=== PATIENT | female | born 1985 | race African-American/Black ===

== ENCOUNTER 2016-04-30 11:27 | Emergency (ER) | payer SELFPAY ==
[~2016-04-30] VITALS: Ht 162.6 cm; Wt 89.8 kg
[2016-04-30 11:55] VITALS: BP 144/92
--- NOTE | 2016-04-30 12:21 | PHYS DOC ---
Past Medical History Past Medical History: No Pertinent History Past Surgical History: No Surgical History Adult General Chief Complaint Chief Complaint: UPPER EXTREMITY PAIN HPI HPI Patient is a 30 year old male presents emergency department stating that she woke up this morning with her right him being slightly swollen and increased pain from her hand although way up into her upper arm. Patient states that she works at the [employer] been doing some heavy lifting and moving and turning. She is right-hand dominant. She has 2+ peripheral pulses Refill brisk less than 2 seconds equal transportation operations manager noted bilaterally equal strength noted. Patient denies taking anything for pain and discomfort this morning. Review of Systems Review of Systems Constitutional: Denies fever or chills [] Eyes: Denies change in visual acuity, redness, or eye pain [] HENT: Denies nasal congestion or sore throat [] Respiratory: Denies cough or shortness of breath [] Cardiovascular: No additional information not addressed in HPI [] GI: Denies abdominal pain, nausea, vomiting, bloody stools or diarrhea [] : Denies dysuria or hematuria [] Musculoskeletal: Denies back pain. C/o right arm swelling and pain Neurologic: Denies headache, focal weakness or sensory changes [] Physical Exam Physical Exam Constitutional: Well developed, well nourished, no acute distress, non-toxic appearance. [] HENT: Normocephalic, atraumatic, bilateral external ears normal, oropharynx moist, no oral exudates, nose normal. [] Eyes: PERRLA, EOMI, conjunctiva normal, no discharge. [] Neck: Normal range of motion, no tenderness, supple, no stridor. [] Cardiovascular:Heart rate regular rhythm Lungs & Thorax: No respiratory distress noted Skin: Warm, dry, no erythema, no rash. [] Back: No tenderness Extremities: Right elbow tenderness, no cyanosis, no clubbing, ROM intact, no edema. Peripheral pulses 2+ cap refill brisk less than 2 seconds. No significant swelling was appreciated. Patient was tender at the elbow area. With palpating in the elbow she states that this causes the pain to go up into her arm she's been having. Patient with equal transportation operations manager bilaterally equal strength noted in the upper extremities. Negative Phalen's test. Neurologic: Alert and oriented X 3, normal motor function, normal sensory function, no focal deficits noted. [] Psychologic: Affect normal, judgement normal, mood normal. [] EKG EKG [] Radiology/Procedures Radiology/Procedures [] Course & Med Decision Making Course & Med Decision Making Pertinent Labs and Imaging studies reviewed. (See chart for details) Recommended ice packs on 20 minutes off 20 minutes several times a day to the elbow area. Also recommended Tylenol and ibuprofen. Patient will be placed in a sling for the next week. Recommended rest for the right arm. Patient was also instructed to follow-up with orthopedic if she continues to have pain and discomfort. Patient will be discharged home in stable condition since symptoms to return back to emergency department as been provided. [] Dragon Disclaimer Dragon Disclaimer This electronic medical record was generated, in whole or in part, using a voice recognition dictation system. Departure Departure Impression: Primary Impression: Overuse syndrome of elbow Disposition: 01 HOME, SELF-CARE Condition: STABLE Referrals: VINAY FREEDMAN MD (PCP) Patient Instructions: Bursitis Additional Instructions: Activity as tolerated Tylenol or Ibuprofen for pain and discomfort Ice packs on 20 minutes and off 20 minutes several times a day Elevation as much as possible Wear the sling to the right arm the next week Avoid lifting and over use of the right arm Followup with orthopedic in 1 week Return to emergency department as needed for signs and symptoms that become worse. NELY MORA NP Apr 30, 2016 12:21
== END 2016-04-30 12:30 | disposition home or self-care (01) ==
LOC: ER 11:27
DX: M70.831 Other soft tissue disorders related to use, overuse and pressure, right forearm (principal)
CPT/HCPCS: 99282

== ENCOUNTER 2017-06-18 00:09 | Inpatient (IN) | payer OTHER ==
[2017-06-18] MEDS: SUCCINYLCHOLINE 200 MG/10 ML VIAL. IV (00:31)
[2017-06-18] MEDS: ETOMIDATE 20 MG/10 ML VIAL. IV (00:31)
[2017-06-18] MEDS ORDERED: PROPOFOL 50 ML IV ×2 (00:36→02:08)
[2017-06-18] MEDS: PROPOFOL 50 ML IV (00:42)
[2017-06-18] MEDS: PROPOFOL 10 MG/ML (20ML) VIAL. IV (00:45)
[2017-06-18 00:55] LABS: AGAP ISTAT 20 mmol/L (6-14); BUN ISTAT 20 mg/dL (8-26); CHLORIDE ISTAT 106 mmol/L (98-110); CREATININE ISTAT 0.9 mg/dL (0.5-1.4); GLUCOSE ISTAT 252 mg/dL (70-99); HEMATOCRIT ISTAT 44 % (36-40); ION CA ISTAT 1.03 mmol/L (1.13-1.32); POTASSIUM ISTAT 3.2 mmol/L (3.5-5.0); SODIUM ISTAT 142 mmol/L (135-145); TOT CO2 ISTAT 19 mmol/L (23-32)
[2017-06-18 00:59] LABS: ANION GAP 14 (6-14); BLOOD UREA NITROGEN 20 mg/dL (7-20); BUN/CREATININE RATIO 20 (6-20); CALCIUM 8.4 mg/dL (8.5-10.1); CARBON DIOXIDE 21 mmol/L (21-32); CHLORIDE 105 mmol/L (98-107); GFR 78.2; GLUCOSE 253 mg/dL (70-99); POTASSIUM 3.9 mmol/L (3.5-5.1); SODIUM 140 mmol/L (136-145)
[2017-06-18 01:04] LABS: ACETAMIN < 2 mcg/ml (10-30); ETHANOL < 10 mg/dL (0-10); SALIC < 2.8 mg/dL (2.8-20.0)
[2017-06-18 01:05] LABS: ALBUMIN 3.1 g/dL (3.4-5.0); ALBUMIN/GLOBULIN RATIO 0.9 (1.0-1.7); ALK PHOS 38 U/L (46-116); ALT (SGPT) 65 U/L (14-59); AST (SGOT) 64 U/L (15-37); TOTAL BILIRUBIN 0.4 mg/dL (0.2-1.0); TOTAL PROTEIN 6.6 g/dL (6.4-8.2)
[2017-06-18] MEDS: AMIODARONE 150 MG in IV DEXTROSE 5% 100 ML IV (01:31)
[2017-06-18] MEDS ORDERED: ONDANSETRON PF 4 MG/2 ML VIAL. IV (01:45)
[2017-06-18] MEDS: AMIODARONE 900 MG in IV DEXTROSE 5% 500 ML IV ×2 (01:45→23:52)
[2017-06-18 02:06] LABS: URINE HCG POC HCG NEGATIVE (Negative)
[2017-06-18 02:07] LABS: BILIRUBIN,URINE NEGATIVE (NEG); CLARITY,URINE CLOUDY; COLOR,URINE YELLOW; GLUCOSE,URINE 250 mg/dL (NEG); NITRITE,URINE NEGATIVE (NEG); PH,URINE 6.5; PROTEIN,URINE >=300 mg/dL (NEG-TRACE); UROBILINOGEN,URINE 0.2 mg/dL (0.2 mg/dL)
[2017-06-18 02:22] LABS: BACTERIA,URINE MOD /HPF (0-FEW); SQUAMOUS EPITHELIAL CELL,UR FEW /LPF
[2017-06-18 02:27] LABS: BARBITURATES NEG (NEG); BENZODIAZEPINES NEG (NEG); CANNABINOIDS NEG (NEG); COCAINE NEG (NEG); METHADONE NEG (NEG); OPIATES NEG (NEG); PHENCYCLIDINE NEG (NEG)
[2017-06-18 02:28] LABS: AMPHETAMINE/METHAMPHETAMINE NEG (NEG); ETHANOL, URINE NEG (NEG)
[2017-06-18] MEDS ORDERED: CONTRAST GIVEN MC ×2 (02:30→12:30)
[2017-06-18] MEDS ORDERED: ETOMIDATE 20 MG/10 ML VIAL. IV (02:31)
[2017-06-18] MEDS ORDERED: SUCCINYLCHOLINE 200 MG/10 ML VIAL. (02:32)
[2017-06-18 02:51] LABS: BASE EXCESS ABG -5 mmol/L (-3-3); HCO3 ABG 20 mmol/L (21-28); PCO2 ABG 39 mmHg (35-46); PH ABG 7.33 (7.35-7.45); PO2 ABG 144 mmHg (85-108); SAT O2 ABG 99 % (92-99)
[2017-06-18 02:58] LABS: FIO2 ABG 100
[2017-06-18] MEDS: IOHEXOL 300 MG/ML 100ML VIAL. IV (03:22)
[2017-06-18] MEDS: PROPOFOL 100 ML IV ×2 (04:00→09:44)
[2017-06-18] MEDS: NOREPINEPHRIN PREMIX 250 ML IV (04:30)
[2017-06-18 05:18] LABS: ADD MAN DIFF? NO
[2017-06-18 05:26] LABS: BASO % 0 % (0-3); EOS % 0 % (0-3); HEMATOCRIT 43.7 % (36.0-47.0); LYMPH # 1.5 x10^3/uL (1.0-4.8); LYMPH % 19 % (24-48); MEAN CORPUSCULAR HEMOGLOBIN 33 pg (25-35); MEAN CORPUSCULAR HGB CONC 32 g/dL (31-37); MEAN CORPUSCULAR VOLUME 102 fL (79-100); MONO # 0.4 x10^3/uL (0.0-1.1); MONO % 5 % (0-9); NEUT % 76 % (31-73); PLATELET COUNT 219 x10^3/uL (140-400); RED CELL DISTRIBUTION WIDTH 13.5 % (11.5-14.5); WHITE BLOOD COUNT 7.9 x10^3/uL (4.0-11.0)
[2017-06-18 06:07] LABS: TROPONINI 0.622 ng/mL (0.000-0.055)
[2017-06-18] MEDS ORDERED: NOREPINEPHRIN PREMIX 250 ML IV (06:15)
[2017-06-18 08:03] LABS: TROPONINI 0.794 ng/mL (0.000-0.055)
[2017-06-18 08:11] LABS: BASE EXCESS ABG -7 mmol/L (-3-3); HCO3 ABG 18 mmol/L (21-28); PCO2 ABG 35 mmHg (35-46); PH ABG 7.34 (7.35-7.45); PO2 ABG 64 mmHg (85-108); SAT O2 ABG 91 % (92-99)
[2017-06-18 08:58] LABS: FIO2 ABG 90
[2017-06-18] MEDS ORDERED: DOCUSATE SODIUM 100 MG CAPSULE. PO (09:00)
[2017-06-18] MEDS ORDERED: MORPHINE SULFATE 4 MG/ML DISP.SYRIN. IV ×3 (09:00→11:00)
[2017-06-18] MEDS ORDERED: hydrALAZINE 20 MG/ML VIAL. IVP (09:00)
[2017-06-18 09:39] LABS: HEMOGLOBIN 15.3 g/dL (12.0-15.5); MEAN CORPUSCULAR HEMOGLOBIN 33 pg (25-35); MEAN CORPUSCULAR HGB CONC 33 g/dL (31-37); MEAN CORPUSCULAR VOLUME 100 fL (79-100); PLATELET COUNT 250 x10^3/uL (140-400); RED BLOOD COUNT 4.71 x10^6/uL (3.50-5.40); RED CELL DISTRIBUTION WIDTH 13.2 % (11.5-14.5); WHITE BLOOD COUNT 13.1 x10^3/uL (4.0-11.0)
[2017-06-18] MEDS ORDERED: LIDOCAINE 2% 20 ML VIAL. ×2 (09:48→11:19)
[2017-06-18] MEDS ORDERED: IOHEXOL 300 MG/ML 100ML VIAL. ×2 (09:48→11:18)
[2017-06-18 09:50] LABS: ANION GAP 16 (6-14); BLOOD UREA NITROGEN 24 mg/dL (7-20); CALCIUM 9.1 mg/dL (8.5-10.1); CARBON DIOXIDE 23 mmol/L (21-32); CHLORIDE 104 mmol/L (98-107); CREATININE 1.7 mg/dL (0.6-1.0); GFR 42.4; GLUCOSE 113 mg/dL (70-99); POTASSIUM 4.2 mmol/L (3.5-5.1); SODIUM 143 mmol/L (136-145)
[2017-06-18 09:51] LABS: CHOLESTEROL 152 mg/dL (0-200); HDLC 52 mg/dL (40-60); LDLC 87 mg/dL (0-100); LIPASE 59 U/L (73-393); NON-HDL CHOLESTEROL 100 mg/dL (0-129); TRIGLYCERIDES 66 mg/dL (0-150); VLDLC 13 mg/dL (0-40)
[2017-06-18 09:53] LABS: CHOLESTEROL/HDL RATIO 2.9
[2017-06-18 10:05] LABS: THYROID STIM HORMONE (TSH) 1.302 uIU/mL (0.358-3.74)
[2017-06-18] MEDS ORDERED: HEPARIN for IV BOLUS 10,000 UNIT/10 ML VIAL. ×2 (10:05→11:46)
[2017-06-18 10:06] LABS: CKMB INDEX 1.5 % (0-4); CKMB MASS 5.4 ng/mL (0.0-3.6); CREATINE KINASE 366 U/L (26-192)
[2017-06-18] MEDS ORDERED: LIDOCAINE WITH 8.4% SOD BICARB 3 ML DISP.SYRIN. (10:06)
[2017-06-18] MEDS: LIDOCAINE WITH 8.4% SOD BICARB 3 ML DISP.SYRIN. INJ (10:27)
[2017-06-18] MEDS ORDERED: PIP/TAZO PER PHARMACY MC (10:45)
[2017-06-18 10:54] LABS: MYCOPLASMA PATIENT POSITIVE (NEGATIVE); NEGATIVE OBC MYCO NEG; POSITIVE OBC MYCO POS
[2017-06-18] MEDS: DOXYCYCLINE HYCLATE 100 MG in IV DEXTROSE 5% 100 ML IV ×2 (11:14→20:37)
[2017-06-18] MEDS: SODIUM BICARBONATE VIAL 150 MEQ in IV DEXTROSE 5% 1,000 ML IV ×2 (11:14→22:20)
[2017-06-18] MEDS: MIDAZOLAM 100MG/100ML PREMIX 100 ML IV ×2 (11:29→23:52)
[2017-06-18] MEDS ORDERED: VERAPAMIL 5 MG/2 ML VIAL. ×2 (11:46→12:00)
[2017-06-18] MEDS ORDERED: NITROGLYCERIN 200 MCG/2 ML SYRINGE FOR CATH/VASC LAB. (11:46)
[2017-06-18] MEDS: LIDOCAINE 2% 20 ML VIAL. IJ (12:24)
[2017-06-18] MEDS: IOHEXOL 300 MG/ML 100ML VIAL. IART (12:24)
[2017-06-18] MEDS ORDERED: NITROGLYCERIN SUBLINGUAL 0.4 MG BOTTLE OF 25. SL (12:45)
[2017-06-18 15:33] LABS: ANION GAP 10 (6-14); BLOOD UREA NITROGEN 24 mg/dL (7-20); CALCIUM 8.1 mg/dL (8.5-10.1); CARBON DIOXIDE 24 mmol/L (21-32); CHLORIDE 105 mmol/L (98-107); CREATININE 1.8 mg/dL (0.6-1.0); GFR 39.7; GLUCOSE 141 mg/dL (70-99); POTASSIUM 3.6 mmol/L (3.5-5.1); SODIUM 139 mmol/L (136-145)
[2017-06-18] MEDS: PIPERACILLIN/TAZOBACTAM 3.375 GM in IV NORMAL SALINE 50ML 50 ML IV ×3 (15:51→23:52)
[2017-06-18] MEDS: HEPARIN PF for SUB-Q USE 5,000 UNIT/0.5 ML VIAL. SQ ×2 (17:14→22:21)
[2017-06-18] MEDS: CHLORHEXIDINE 0.12% 15 ML MOUTHWASH. MM (20:36)
[2017-06-18] MEDS: FAMOTIDINE 20 MG/2 ML VIAL IVP (20:36)
[2017-06-18 22:16] LABS: MRSA BY PCR Negative (Negative)
[2017-06-19 05:22] LABS: ADD MAN DIFF? NO
[2017-06-19 05:25] LABS: BASO % 1 % (0-3); EOS % 0 % (0-3); HEMATOCRIT 34.8 % (36.0-47.0); LYMPH % 13 % (24-48); MEAN CORPUSCULAR HEMOGLOBIN 34 pg (25-35); MEAN CORPUSCULAR HGB CONC 35 g/dL (31-37); MEAN CORPUSCULAR VOLUME 97 fL (79-100); MONO # 0.5 x10^3/uL (0.0-1.1); MONO % 7 % (0-9); NEUT # 5.7 x10^3uL (1.8-7.7); NEUT % 79 % (31-73); PLATELET COUNT 154 x10^3/uL (140-400); RED BLOOD COUNT 3.59 x10^6/uL (3.50-5.40); RED CELL DISTRIBUTION WIDTH 12.7 % (11.5-14.5); WHITE BLOOD COUNT 7.2 x10^3/uL (4.0-11.0)
[2017-06-19] MEDS: PIPERACILLIN/TAZOBACTAM 3.375 GM in IV NORMAL SALINE 50ML 50 ML IV ×4 (05:34→23:51)
[2017-06-19] MEDS: HEPARIN PF for SUB-Q USE 5,000 UNIT/0.5 ML VIAL. SQ ×3 (05:35→21:02)
[2017-06-19 05:49] LABS: ALBUMIN 2.5 g/dL (3.4-5.0); ALBUMIN/GLOBULIN RATIO 0.8 (1.0-1.7); ALK PHOS 22 U/L (46-116); ALT (SGPT) 47 U/L (14-59); ANION GAP 8 (6-14); AST (SGOT) 37 U/L (15-37); BLOOD UREA NITROGEN 19 mg/dL (7-20); BUN/CREATININE RATIO 12 (6-20); CALCIUM 7.9 mg/dL (8.5-10.1); CARBON DIOXIDE 27 mmol/L (21-32); CHLORIDE 105 mmol/L (98-107); CREATININE 1.6 mg/dL (0.6-1.0); GFR 45.5; GLUCOSE 127 mg/dL (70-99); SODIUM 140 mmol/L (136-145); TOTAL BILIRUBIN 1.1 mg/dL (0.2-1.0); TOTAL PROTEIN 5.8 g/dL (6.4-8.2)
[2017-06-19 06:04] LABS: POTASSIUM 2.7 mmol/L (3.5-5.1)
[2017-06-19] MEDS: POTASSIUM CHLORIDE 20MEQ 50 ML IV ×2 (07:45→09:31)
[2017-06-19 07:52] LABS: BASE EXCESS ABG 4 mmol/L (-3-3); HCO3 ABG 24 mmol/L (21-28); PCO2 ABG 23 mmHg (35-46); PO2 ABG 487 mmHg (85-108); SAT O2 ABG 99 % (92-99)
[2017-06-19 08:13] LABS: MAGNESIUM 1.7 mg/dL (1.8-2.4)
[2017-06-19] MEDS: MAGNESIUM SULFATE 2GM 50 ML IV ×2 (09:30→11:21)
[2017-06-19] MEDS: SODIUM BICARBONATE VIAL 150 MEQ in IV DEXTROSE 5% 1,000 ML IV ×2 (10:40→20:58)
[2017-06-19 11:27] LABS: LEGIONELLA AG UR Negative (Negative)
[2017-06-19 11:27] LABS: SPECIMEN SOURCE Urine (.); STREP PNEUMO ANTIGEN Negative (Negative)
[2017-06-19] MEDS: DOXYCYCLINE HYCLATE 100 MG in IV DEXTROSE 5% 100 ML IV ×2 (12:39→20:45)
[2017-06-19] MEDS: CHLORHEXIDINE 0.12% 15 ML MOUTHWASH. MM ×2 (14:11→20:45)
[2017-06-19 16:47] LABS: FIO2 ABG 90; PH ABG 7.62 (7.35-7.45)
[2017-06-19] MEDS ORDERED: PANTOPRAZOLE SODIUM IV DRIP 80 MG in IV NORMAL SALINE 100ML 100 ML IV (17:30)
[2017-06-19 17:58] LABS: HEMATOCRIT 33.4 % (36.0-47.0); HEMOGLOBIN 11.5 g/dL (12.0-15.5); MEAN CORPUSCULAR HGB CONC 34 g/dL (31-37)
[2017-06-19] MEDS: MIDAZOLAM 100MG/100ML PREMIX 100 ML IV (18:27)
[2017-06-19] MEDS: PANTOPRAZOLE IV PUSH 40 MG VIAL. IVP (20:45)
[2017-06-20 01:14] LABS: HEMOGLOBIN A1C 5.4 % (4.8-5.6)
[2017-06-20 05:43] LABS: POC GLUCOSE 112 mg/dL (70-99)
[2017-06-20 06:02] LABS: ADD MAN DIFF? NO
[2017-06-20] MEDS: PIPERACILLIN/TAZOBACTAM 3.375 GM in IV NORMAL SALINE 50ML 50 ML IV ×3 (06:22→17:49)
[2017-06-20 06:24] LABS: BASO % 0 % (0-3); EOS # 0.1 x10^3/uL (0.0-0.7); EOS % 1 % (0-3); HEMATOCRIT 31.5 % (36.0-47.0); HEMOGLOBIN 10.8 g/dL (12.0-15.5); LYMPH # 0.8 x10^3/uL (1.0-4.8); LYMPH % 17 % (24-48); MEAN CORPUSCULAR HEMOGLOBIN 34 pg (25-35); MEAN CORPUSCULAR HGB CONC 34 g/dL (31-37); MEAN CORPUSCULAR VOLUME 98 fL (79-100); MONO # 0.5 x10^3/uL (0.0-1.1); MONO % 9 % (0-9); NEUT # 3.6 x10^3uL (1.8-7.7); NEUT % 73 % (31-73); PLATELET COUNT 137 x10^3/uL (140-400); RED BLOOD COUNT 3.23 x10^6/uL (3.50-5.40); RED CELL DISTRIBUTION WIDTH 12.9 % (11.5-14.5)
[2017-06-20] MEDS: HEPARIN PF for SUB-Q USE 5,000 UNIT/0.5 ML VIAL. SQ ×3 (06:24→22:29)
[2017-06-20 06:34] LABS: ANION GAP 7 (6-14); BLOOD UREA NITROGEN 10 mg/dL (7-20); CALCIUM 7.7 mg/dL (8.5-10.1); CARBON DIOXIDE 27 mmol/L (21-32); CHLORIDE 105 mmol/L (98-107); CREATININE 1.1 mg/dL (0.6-1.0); GFR 70.1; GLUCOSE 125 mg/dL (70-99); PHOSPHORUS 2.8 mg/dL (2.6-4.7); SODIUM 139 mmol/L (136-145)
[2017-06-20 06:36] LABS: POTASSIUM 2.9 mmol/L (3.5-5.1)
[2017-06-20 07:37] LABS: BASE EXCESS ABG 2 mmol/L (-3-3); HCO3 ABG 23 mmol/L (21-28); PO2 ABG 146 mmHg (85-108); SAT O2 ABG 99 % (92-99)
[2017-06-20] MEDS: POTASSIUM CHLORIDE 20MEQ 50 ML IV ×4 (07:37→22:06)
[2017-06-20 08:46] LABS: PCO2 ABG 26 mmHg (35-46); PH ABG 7.56 (7.35-7.45)
[2017-06-20] MEDS: MIDAZOLAM 100MG/100ML PREMIX 100 ML IV (08:49)
[2017-06-20] MEDS: SODIUM BICARBONATE VIAL 150 MEQ in IV DEXTROSE 5% 1,000 ML IV ×2 (09:23→20:48)
[2017-06-20] MEDS: PANTOPRAZOLE IV PUSH 40 MG VIAL. IVP ×2 (09:28→20:48)
[2017-06-20] MEDS: DOXYCYCLINE HYCLATE 100 MG in IV DEXTROSE 5% 100 ML IV ×2 (09:49→20:48)
[2017-06-20] MEDS: CHLORHEXIDINE 0.12% 15 ML MOUTHWASH. MM ×2 (11:49→20:04)
[2017-06-20] MEDS: METOPROLOL TARTRATE 5 MG/5 ML VIAL. IVP (12:00)
[2017-06-20 12:44] LABS: POC GLUCOSE 109 mg/dL (70-99)
[2017-06-20 15:25] LABS: BASE EXCESS ABG 1 mmol/L (-3-3); HCO3 ABG 25 mmol/L (21-28); PCO2 ABG 38 mmHg (35-46); PH ABG 7.44 (7.35-7.45); PO2 ABG 64 mmHg (85-108); SAT O2 ABG 92 % (92-99)
[2017-06-20 15:26] LABS: FIO2 ABG 30%
[2017-06-20 17:58] LABS: POC GLUCOSE 123 mg/dL (70-99)
[2017-06-20 20:16] LABS: POTASSIUM 3.4 mmol/L (3.5-5.1)
[2017-06-20 21:11] LABS: RVP ADENOVIRUS Negative (Negative); RVP INFLUENZA A Negative (Negative); RVP INFLUENZA B Negative (Negative); RVP METAPNEUMOVIRUS Negative (Negative); RVP PARAINFLUENZA 1 Negative (Negative); RVP PARAINFLUENZA 2 Negative (Negative); RVP PARAINFLUENZA 3 Negative (Negative); RVP RHINOVIRUS Negative (Negative); RVP RSV A Negative (Negative); RVP RSV B Negative (Negative)
[2017-06-21] MEDS: METOPROLOL TARTRATE 5 MG/5 ML VIAL. IVP ×7 (00:01→23:53)
[2017-06-21] MEDS: PIPERACILLIN/TAZOBACTAM 3.375 GM in IV NORMAL SALINE 50ML 50 ML IV ×5 (00:06→23:53)
[2017-06-21] MEDS: AMIODARONE 450 MG in IV DEXTROSE 5% 250 ML IV (02:36)
[2017-06-21] MEDS: HEPARIN PF for SUB-Q USE 5,000 UNIT/0.5 ML VIAL. SQ ×3 (05:33→21:09)
[2017-06-21 06:21] LABS: ADD MAN DIFF? NO
[2017-06-21 06:34] LABS: BASO % 0 % (0-3); EOS # 0.1 x10^3/uL (0.0-0.7); EOS % 3 % (0-3); HEMATOCRIT 32.2 % (36.0-47.0); HEMOGLOBIN 10.7 g/dL (12.0-15.5); LYMPH # 0.8 x10^3/uL (1.0-4.8); LYMPH % 17 % (24-48); MEAN CORPUSCULAR HEMOGLOBIN 33 pg (25-35); MEAN CORPUSCULAR HGB CONC 33 g/dL (31-37); MEAN CORPUSCULAR VOLUME 98 fL (79-100); MONO # 0.4 x10^3/uL (0.0-1.1); MONO % 9 % (0-9); NEUT # 3.4 x10^3uL (1.8-7.7); NEUT % 71 % (31-73); PLATELET COUNT 123 x10^3/uL (140-400); RED BLOOD COUNT 3.28 x10^6/uL (3.50-5.40); RED CELL DISTRIBUTION WIDTH 12.9 % (11.5-14.5); WHITE BLOOD COUNT 4.7 x10^3/uL (4.0-11.0)
[2017-06-21 06:50] LABS: ANION GAP 6 (6-14); BLOOD UREA NITROGEN 7 mg/dL (7-20); CALCIUM 8.4 mg/dL (8.5-10.1); CARBON DIOXIDE 26 mmol/L (21-32); CHLORIDE 105 mmol/L (98-107); CREATININE 0.9 mg/dL (0.6-1.0); GFR 88.4; GLUCOSE 138 mg/dL (70-99); MAGNESIUM 1.8 mg/dL (1.8-2.4); PHOSPHORUS 2.7 mg/dL (2.6-4.7); POTASSIUM 3.5 mmol/L (3.5-5.1); SODIUM 137 mmol/L (136-145)
[2017-06-21 08:06] LABS: BASE EXCESS ABG 1 mmol/L (-3-3); HCO3 ABG 24 mmol/L (21-28); PCO2 ABG 33 mmHg (35-46); PH ABG 7.48 (7.35-7.45); PO2 ABG 89 mmHg (85-108); SAT O2 ABG 97 % (92-99)
[2017-06-21 08:07] LABS: FIO2 ABG 30
[2017-06-21] MEDS: POTASSIUM CHLORIDE 20 MEQ TABLET.ER. PO (08:31)
[2017-06-21] MEDS: PANTOPRAZOLE IV PUSH 40 MG VIAL. IVP ×2 (08:32→21:03)
[2017-06-21] MEDS: DOXYCYCLINE HYCLATE 100 MG in IV DEXTROSE 5% 100 ML IV ×2 (08:33→21:03)
[2017-06-21] MEDS: CHLORHEXIDINE 0.12% 15 ML MOUTHWASH. MM (08:33)
[2017-06-21] MEDS: valACYclovir 500 MG TABLET. PO ×3 (08:37→21:03)
[2017-06-21 08:54] LABS: BASE EXCESS ABG 1 mmol/L (-3-3); HCO3 ABG 24 mmol/L (21-28); PCO2 ABG 35 mmHg (35-46); PH ABG 7.45 (7.35-7.45); PO2 ABG 99 mmHg (85-108); SAT O2 ABG 98 % (92-99)
[2017-06-21] MEDS: ONDANSETRON PF 4 MG/2 ML VIAL. IV (09:29)
[2017-06-21] MEDS: SODIUM BICARBONATE VIAL 150 MEQ in IV DEXTROSE 5% 1,000 ML IV ×2 (09:31→20:36)
[2017-06-21 14:49] LABS: FIO2 ABG 30
[2017-06-21] MEDS: traMADol 50 MG TABLET PO (17:47)
[2017-06-22] MEDS: HEPARIN PF for SUB-Q USE 5,000 UNIT/0.5 ML VIAL. SQ ×3 (06:00→20:50)
[2017-06-22] MEDS: PIPERACILLIN/TAZOBACTAM 3.375 GM in IV NORMAL SALINE 50ML 50 ML IV ×4 (06:12→23:26)
[2017-06-22] MEDS: METOPROLOL TARTRATE 5 MG/5 ML VIAL. IVP (06:12)
[2017-06-22 06:29] LABS: ADD MAN DIFF? NO
[2017-06-22 06:42] LABS: BASO % 0 % (0-3); EOS # 0.2 x10^3/uL (0.0-0.7); EOS % 5 % (0-3); HEMATOCRIT 31.1 % (36.0-47.0); HEMOGLOBIN 10.5 g/dL (12.0-15.5); LYMPH # 1.1 x10^3/uL (1.0-4.8); LYMPH % 22 % (24-48); MEAN CORPUSCULAR HEMOGLOBIN 33 pg (25-35); MEAN CORPUSCULAR HGB CONC 34 g/dL (31-37); MEAN CORPUSCULAR VOLUME 98 fL (79-100); MONO # 0.5 x10^3/uL (0.0-1.1); MONO % 10 % (0-9); NEUT # 3.2 x10^3uL (1.8-7.7); NEUT % 63 % (31-73); PLATELET COUNT 120 x10^3/uL (140-400); RED BLOOD COUNT 3.18 x10^6/uL (3.50-5.40); RED CELL DISTRIBUTION WIDTH 12.7 % (11.5-14.5); WHITE BLOOD COUNT 5.1 x10^3/uL (4.0-11.0)
[2017-06-22 06:51] LABS: ANION GAP 4 (6-14); BLOOD UREA NITROGEN 6 mg/dL (7-20); CALCIUM 8.5 mg/dL (8.5-10.1); CARBON DIOXIDE 30 mmol/L (21-32); CHLORIDE 104 mmol/L (98-107); CREATININE 0.9 mg/dL (0.6-1.0); GFR 88.4; GLUCOSE 120 mg/dL (70-99); POTASSIUM 3.4 mmol/L (3.5-5.1); SODIUM 138 mmol/L (136-145)
[2017-06-22] MEDS: SODIUM BICARBONATE VIAL 150 MEQ in IV DEXTROSE 5% 1,000 ML IV (08:24)
[2017-06-22] MEDS: POTASSIUM CHLORIDE 20 MEQ TABLET.ER. PO ×2 (08:25→13:19)
[2017-06-22] MEDS: PANTOPRAZOLE IV PUSH 40 MG VIAL. IVP (08:26)
[2017-06-22] MEDS: DOXYCYCLINE HYCLATE 100 MG in IV DEXTROSE 5% 100 ML IV ×2 (08:26→20:39)
[2017-06-22] MEDS: valACYclovir 500 MG TABLET. PO ×3 (08:27→20:42)
[2017-06-22] MEDS ORDERED: ALPRAZolam 0.25 MG TABLET PO (08:30)
[2017-06-22] MEDS ORDERED: AMIODARONE HCL 200 MG TABLET. PO (11:00)
[2017-06-22] MEDS: ACETAMINOPHEN 325 MG TABLET. PO (12:10)
[2017-06-22] MEDS: METOPROLOL TART IMMED RELEASE 25 MG TABLET. PO ×2 (12:12→20:41)
[2017-06-22] MEDS: AMIODARONE HCL 200 MG TABLET. PO (20:41)
[2017-06-23] MEDS: PIPERACILLIN/TAZOBACTAM 3.375 GM in IV NORMAL SALINE 50ML 50 ML IV ×4 (05:04→23:31)
[2017-06-23 05:06] LABS: ADD MAN DIFF? NO
[2017-06-23 05:35] LABS: ANION GAP 10 (6-14); BLOOD UREA NITROGEN 5 mg/dL (7-20); CALCIUM 8.4 mg/dL (8.5-10.1); CARBON DIOXIDE 25 mmol/L (21-32); CHLORIDE 106 mmol/L (98-107); CREATININE 0.9 mg/dL (0.6-1.0); GFR 88.4; GLUCOSE 94 mg/dL (70-99); POTASSIUM 3.9 mmol/L (3.5-5.1); SODIUM 141 mmol/L (136-145)
[2017-06-23 05:46] LABS: BASO % 1 % (0-3); EOS # 0.2 x10^3/uL (0.0-0.7); EOS % 5 % (0-3); HEMATOCRIT 32.1 % (36.0-47.0); HEMOGLOBIN 10.8 g/dL (12.0-15.5); LYMPH # 1.2 x10^3/uL (1.0-4.8); LYMPH % 24 % (24-48); MEAN CORPUSCULAR HEMOGLOBIN 33 pg (25-35); MEAN CORPUSCULAR HGB CONC 34 g/dL (31-37); MEAN CORPUSCULAR VOLUME 98 fL (79-100); MONO # 0.5 x10^3/uL (0.0-1.1); MONO % 11 % (0-9); NEUT % 61 % (31-73); PLATELET COUNT 141 x10^3/uL (140-400); RED BLOOD COUNT 3.28 x10^6/uL (3.50-5.40); RED CELL DISTRIBUTION WIDTH 12.9 % (11.5-14.5); WHITE BLOOD COUNT 4.9 x10^3/uL (4.0-11.0)
[2017-06-23] MEDS: PANTOPRAZOLE 40 MG TABLET.DR. PO (06:19)
[2017-06-23] MEDS: HEPARIN PF for SUB-Q USE 5,000 UNIT/0.5 ML VIAL. SQ ×3 (06:20→20:28)
[2017-06-23] MEDS: ACETAMINOPHEN 325 MG TABLET. PO (06:29)
[2017-06-23] MEDS: POTASSIUM CHLORIDE 20 MEQ TABLET.ER. PO (08:44)
[2017-06-23] MEDS: METOPROLOL TART IMMED RELEASE 25 MG TABLET. PO ×2 (08:44→20:21)
[2017-06-23] MEDS: AMIODARONE HCL 200 MG TABLET. PO ×2 (08:45→20:20)
[2017-06-23] MEDS: DOXYCYCLINE HYCLATE 100 MG in IV DEXTROSE 5% 100 ML IV ×2 (08:45→20:16)
[2017-06-23] MEDS: valACYclovir 500 MG TABLET. PO ×3 (09:43→20:21)
[2017-06-24] MEDS: HEPARIN PF for SUB-Q USE 5,000 UNIT/0.5 ML VIAL. SQ ×3 (03:39→21:49)
[2017-06-24] MEDS: PANTOPRAZOLE 40 MG TABLET.DR. PO ×2 (03:40→08:44)
[2017-06-24] MEDS: PIPERACILLIN/TAZOBACTAM 3.375 GM in IV NORMAL SALINE 50ML 50 ML IV ×3 (04:55→18:38)
[2017-06-24] MEDS: IV RINGERS,LACTATED 1000ML 1,000 ML IV (07:00)
[2017-06-24] MEDS ORDERED: PROCHLORPERAZINE 10 MG/2 ML VIAL. IV (07:00)
[2017-06-24] MEDS ORDERED: LIDOCAINE 1% PF 2 ML VIAL. ID (07:00)
[2017-06-24] MEDS ORDERED: HYDROmorphone 2 MG/ML VIAL IV (07:00)
[2017-06-24] MEDS ORDERED: fentaNYL PF VIAL 100 MCG/2 ML VIAL IV (07:00)
[2017-06-24] MEDS: POTASSIUM CHLORIDE 20 MEQ TABLET.ER. PO (08:00)
[2017-06-24] MEDS ORDERED: LOPERAMIDE 2 MG CAPSULE PO (08:15)
[2017-06-24] MEDS: METOPROLOL TART IMMED RELEASE 25 MG TABLET. PO ×2 (08:42→21:48)
[2017-06-24] MEDS: AMIODARONE HCL 200 MG TABLET. PO ×2 (08:43→21:57)
[2017-06-24] MEDS ORDERED: LIDOCAINE 2%/EPI 1:100,000 20 ML VIAL. (11:03)
[2017-06-24] MEDS ORDERED: fentaNYL PF VIAL 100 MCG/2 ML VIAL ×2 (11:13→13:24)
[2017-06-24] MEDS ORDERED: MIDAZOLAM HCL/PF 2 MG/2 ML VIAL. ×2 (11:13→11:45)
[2017-06-24] MEDS: fentaNYL PF VIAL 100 MCG/2 ML VIAL IV ×3 (11:30→13:42)
[2017-06-24] MEDS ORDERED: PROPOFOL 40 ML IV (11:45)
[2017-06-24] MEDS ORDERED: KETAMINE HCL 500 MG/10 ML VIAL. (11:45)
[2017-06-24] MEDS: BACITRACIN 50,000 UNIT in IV NORMAL SALINE 250ML 250 ML IRR (12:53)
[2017-06-24] MEDS: LIDOCAINE 2%/EPI 1:100,000 20 ML VIAL. IJ (12:53)
[2017-06-24] MEDS: MIDAZOLAM HCL/PF 2 MG/2 ML VIAL. IV (12:56)
[2017-06-24] MEDS ORDERED: MORPHINE SULFATE 4 MG/ML DISP.SYRIN. (13:15)
[2017-06-24] MEDS: MORPHINE SULFATE 4 MG/ML DISP.SYRIN. IV ×2 (13:29→13:41)
[2017-06-24] MEDS ORDERED: PROPOFOL 10 MG/ML (20ML) VIAL. IV (16:00)
[2017-06-24] MEDS: traMADol 50 MG TABLET PO ×2 (16:15→23:27)
[2017-06-24 20:11] LABS: C DIFF BY PCR Negative (Negative)
[2017-06-24] MEDS: LACTOBACILLUS RHAMNOSUS GG 1 CAPSULE. PO (21:47)
[2017-06-24] MEDS: ACETAMINOPHEN 325 MG TABLET. PO (23:27)
[2017-06-25] MEDS: PIPERACILLIN/TAZOBACTAM 3.375 GM in IV NORMAL SALINE 50ML 50 ML IV ×2 (00:11→05:49)
[2017-06-25] MEDS: HEPARIN PF for SUB-Q USE 5,000 UNIT/0.5 ML VIAL. SQ ×3 (05:50→14:22)
[2017-06-25] MEDS: AMIODARONE HCL 200 MG TABLET. PO (09:18)
[2017-06-25] MEDS: POTASSIUM CHLORIDE 20 MEQ TABLET.ER. PO (09:19)
[2017-06-25] MEDS: METOPROLOL TART IMMED RELEASE 25 MG TABLET. PO (09:19)
[2017-06-25] MEDS: LACTOBACILLUS RHAMNOSUS GG 1 CAPSULE. PO (09:19)
[2017-06-25] MEDS: PANTOPRAZOLE 40 MG TABLET.DR. PO (09:19)
[2017-06-25 11:33] LABS: ANION GAP 13 (6-14); BLOOD UREA NITROGEN 9 mg/dL (7-20); CALCIUM 8.7 mg/dL (8.5-10.1); CARBON DIOXIDE 24 mmol/L (21-32); CHLORIDE 103 mmol/L (98-107); CREATININE 0.8 mg/dL (0.6-1.0); GFR 101.2; GLUCOSE 89 mg/dL (70-99); MAGNESIUM 1.7 mg/dL (1.8-2.4); POTASSIUM 3.9 mmol/L (3.5-5.1); SODIUM 140 mmol/L (136-145)
[2017-06-25] MEDS: traMADol 50 MG TABLET PO (13:27)
[2017-06-25] MEDS: METOPROLOL SUCC 24HR ER 25 MG TAB.ER.24H. PO (13:27)
[2017-06-25] MEDS: LISINOPRIL 10 MG TABLET PO (14:12)
[2017-06-25] MEDS: MAGNESIUM SULFATE 2GM 50 ML IV (14:13)
[2017-06-26] MEDS ORDERED: LISINOPRIL 10 MG TABLET PO (09:00)
== END 2017-06-25 18:55 | disposition home or self-care (01) | DRG 222 ==
LOC: 2 SOUTH 06-22 11:26 → ER 00:09 → 1 WEST ICU 02:09
PROC: 0JH608Z Insertion of Defibrillator Generator into Chest Subcutaneous Tissue and Fascia, Open Approach (ICD-10-PCS; 2017-06-24 11:45)
PROC: 02HK3KZ Insertion of Defibrillator Lead into Right Ventricle, Percutaneous Approach (ICD-10-PCS; 2017-06-24 11:45)
DX: I21.4 Non-ST elevation (NSTEMI) myocardial infarction (principal); J96.01 Acute respiratory failure with hypoxia; I46.9 Cardiac arrest, cause unspecified; I50.21 Acute systolic (congestive) heart failure; N17.0 Acute kidney failure with tubular necrosis; G93.1 Anoxic brain damage, not elsewhere classified; J18.9 Pneumonia, unspecified organism; I11.0 Hypertensive heart disease with heart failure; G93.41 Metabolic encephalopathy; I49.01 Ventricular fibrillation; I50.23 Acute on chronic systolic (congestive) heart failure; I42.9 Cardiomyopathy, unspecified; E66.01 Morbid (severe) obesity due to excess calories; B02.9 Zoster without complications; D72.829 Elevated white blood cell count, unspecified; Z68.36 Body mass index [BMI] 36.0-36.9, adult; E83.42 Hypomagnesemia; E87.6 Hypokalemia; W57.XXXA Bitten or stung by nonvenomous insect and other nonvenomous arthropods, initial encounter; Z95.810 Presence of automatic (implantable) cardiac defibrillator
CPT/HCPCS: 31500; 33249; 36415; 36556; 36600; 51702; 70450; 71045; 71275; 76937; 80047; 80048; 80053; 80061; 80307; 80329; 81001; 81025; 82553; 82805; 82962; 83036; 83690; 83735; 84100; 84132; 84443; 84484; 85014; 85018; 85025; 85027; 85610; 86738; 87040; 87324; 87449; 87633; 87641; 93005; 93306; 93458; 93641; 94002; 94003; 95816; 96365; 96375; 99291-25; 99292; C1722; C1769; C1771; C1892; C1895; C9113; G0269; G0480; J0282; J0330; J0690; J1250; J1644; J2250; J2270; J2405; J2543; J2704; J3010; J3475; J3480; J3490; J7050; Q9967; S0028

== ENCOUNTER 2017-08-14 14:47 | Observation (INO) | payer OTHER ==
[2017-08-14] MEDS: ASPIRIN CHEWABLE 81 MG TABLET. PO (15:30)
[2017-08-14] MEDS: NITROGLYCERIN PREMIX 250 ML IV (15:30)
[2017-08-14 15:50] LABS: ADD MAN DIFF? NO
[2017-08-14 15:52] LABS: BASO % 0 % (0-3); EOS % 1 % (0-3); HEMATOCRIT 39.2 % (36.0-47.0); HEMOGLOBIN 13.5 g/dL (12.0-15.5); LYMPH % 44 % (24-48); MEAN CORPUSCULAR HEMOGLOBIN 34 pg (25-35); MEAN CORPUSCULAR HGB CONC 35 g/dL (31-37); MEAN CORPUSCULAR VOLUME 98 fL (79-100); MONO # 0.4 x10^3/uL (0.0-1.1); MONO % 9 % (0-9); NEUT % 45 % (31-73); PLATELET COUNT 204 x10^3/uL (140-400); RED BLOOD COUNT 4.02 x10^6/uL (3.50-5.40); RED CELL DISTRIBUTION WIDTH 13.7 % (11.5-14.5); WHITE BLOOD COUNT 4.5 x10^3/uL (4.0-11.0)
[2017-08-14 16:01] LABS: NEG OBC SER NEG; POS OBC SER POS; PREG TEST PT QUAL POSITIVE (NEG); PROTHROMBIN TIME PATIENT 12.9 SEC (11.7-14.0)
[2017-08-14 16:05] LABS: ANION GAP 13 (6-14); BLOOD UREA NITROGEN 14 mg/dL (7-20); BUN/CREATININE RATIO 14 (6-20); CALCIUM 9.6 mg/dL (8.5-10.1); CARBON DIOXIDE 24 mmol/L (21-32); CHLORIDE 101 mmol/L (98-107); GFR 78.2; GLUCOSE 85 mg/dL (70-99); POTASSIUM 3.3 mmol/L (3.5-5.1); SODIUM 138 mmol/L (136-145)
[2017-08-14 16:07] LABS: BILIRUBIN,URINE NEGATIVE (NEG); CLARITY,URINE CLEAR; COLOR,URINE YELLOW; GLUCOSE,URINE NEGATIVE (NEG); NITRITE,URINE NEGATIVE (NEG); PH,URINE 6.5; PROTEIN,URINE NEGATIVE (NEG-TRACE); UROBILINOGEN,URINE 0.2 mg/dL (0.2 mg/dL)
[2017-08-14 16:11] LABS: ALBUMIN 4.1 g/dL (3.4-5.0); ALBUMIN/GLOBULIN RATIO 0.9 (1.0-1.7); ALK PHOS 36 U/L (46-116); ALT (SGPT) 17 U/L (14-59); AST (SGOT) 13 U/L (15-37); MAGNESIUM 2.1 mg/dL (1.8-2.4); TOTAL BILIRUBIN 0.6 mg/dL (0.2-1.0); TOTAL PROTEIN 8.5 g/dL (6.4-8.2)
[2017-08-14 16:12] LABS: BARBITURATES NEG (NEG); BENZODIAZEPINES NEG (NEG); CANNABINOIDS NEG (NEG); COCAINE NEG (NEG); METHADONE NEG (NEG); OPIATES NEG (NEG); PHENCYCLIDINE NEG (NEG)
[2017-08-14 16:13] LABS: AMPHETAMINE/METHAMPHETAMINE NEG (NEG); ETHANOL, URINE NEG (NEG)
[2017-08-14 16:15] LABS: BACTERIA,URINE 0 /HPF (0-FEW); HYALINE CASTS, URINE MODERATE /HPF; RBC,URINE 0 /HPF (0-2); WBC,URINE OCC /HPF (0-4)
[2017-08-14] MEDS ORDERED: NITROGLYCERIN SUBLINGUAL 0.4 MG BOTTLE OF 25. SL (16:15)
[2017-08-14 16:16] LABS: TROPONINI < 0.017 ng/mL (0.000-0.055)
[2017-08-14 19:51] LABS: TROPONINI < 0.017 ng/mL (0.000-0.055)
[2017-08-14] MEDS: POTASSIUM CHLORIDE 20 MEQ TABLET.ER. PO (20:51)
[2017-08-14] MEDS: FOLIC/VIT B COMP W-C (RENAL) TABLET. PO (22:44)
[2017-08-14] MEDS: PRENATAL MULTIVITAMIN TABLET. PO (22:44)
[2017-08-14 23:32] LABS: TROPONINI < 0.017 ng/mL (0.000-0.055)
[2017-08-15 01:05] LABS: THYROID STIM HORMONE (TSH) 2.253 uIU/mL (0.358-3.74)
[2017-08-15 06:52] LABS: CHOLESTEROL 166 mg/dL (0-200); HDLC 47 mg/dL (40-60); LDLC 111 mg/dL (0-100); NON-HDL CHOLESTEROL 119 mg/dL (0-129); TRIGLYCERIDES 39 mg/dL (0-150); VLDLC 8 mg/dL (0-40)
[2017-08-15 06:56] LABS: CHOLESTEROL/HDL RATIO 3.5
[2017-08-15] MEDS: PRENATAL MULTIVITAMIN TABLET. PO (08:36)
[2017-08-15] MEDS: FOLIC/VIT B COMP W-C (RENAL) TABLET. PO (08:36)
[2017-08-15] MEDS: METOPROLOL SUCC 24HR ER 25 MG TAB.ER.24H. PO (11:13)
== END 2017-08-15 17:40 | disposition home or self-care (01) ==
LOC: ER 14:47 → 2 NORTH 16:50
DX: R07.89 Other chest pain (principal); I11.0 Hypertensive heart disease with heart failure; I50.22 Chronic systolic (congestive) heart failure; I42.9 Cardiomyopathy, unspecified; I49.01 Ventricular fibrillation; E78.5 Hyperlipidemia, unspecified; Z86.74 Personal history of sudden cardiac arrest
CPT/HCPCS: 36415; 71045; 80053; 80061; 80307; 81001; 83735; 84443; 84484; 84703; 85025; 85610; 93005; 93308; 99285; G0378; G0379

== ENCOUNTER 2018-01-22 17:26 | Emergency (ER) | payer OTHER ==
[~2018-01-22] VITALS: Ht 162.6 cm; Wt 90.3 kg
[~2018-01-22 17:26] MED LIST: ALPR0.254 PO; AMIO200T4 PO; ASPI325T8 PO; FURO-68 PO; LISI10TA2 PO; METO-239 PO; PREN1TAB13 PO; TRAM50TA PO
[2018-01-22 18:57] LABS: BASO % 0 % (0-3); EOS # 0.1 x10^3/uL (0.0-0.7); EOS % 1 % (0-3); HEMATOCRIT 36.3 % (36.0-47.0); HEMOGLOBIN 12.3 g/dL (12.0-15.5); LYMPH # 1.4 x10^3/uL (1.0-4.8); LYMPH % 21 % (24-48); MEAN CORPUSCULAR HEMOGLOBIN 35 pg (25-35); MEAN CORPUSCULAR HGB CONC 34 g/dL (31-37); MEAN CORPUSCULAR VOLUME 102 fL (79-100); MONO # 0.5 x10^3/uL (0.0-1.1); MONO % 8 % (0-9); NEUT # 4.6 x10^3uL (1.8-7.7); NEUT % 70 % (31-73); PLATELET COUNT 166 x10^3/uL (140-400); RED BLOOD COUNT 3.55 x10^6/uL (3.50-5.40); RED CELL DISTRIBUTION WIDTH 13.3 % (11.5-14.5); WHITE BLOOD COUNT 6.6 x10^3/uL (4.0-11.0)
--- NOTE | 2018-01-22 19:16 | EKG ---
[facility] [address] [place] [address] Test Date: 2018-01-22 Test Time: 17:32:21 Pat Name: REMA KHAN Department: Room: Gender: F Manager Of Security: : 1985 Requested By: RAMÓN JAMA Order Number: [id number] Reading MD: Rik Agustin MD Measurements Intervals [place] Rate: 97 P: 28 TX: 124 QRS: -1 QRSD: 74 T: 7 QT: 342 QTc: 438 Interpretive Statements SINUS RHYTHM VENTRICULAR PREMATURE COMPLEX(ES) Electronically Signed On 01-23-2018 11:13:44 GAS ENGINE OPERATOR by Rik Agustin MD
[2018-01-22 19:52] LABS: PROTHROMBIN TIME PATIENT 12.7 SEC (11.7-14.0)
[2018-01-22 19:56] LABS: CALCIUM 9.3 mg/dL (8.5-10.1); CREATININE 0.7 mg/dL (0.6-1.0); GFR 117.3; POTASSIUM 3.5 mmol/L (3.5-5.1)
--- NOTE | 2018-01-22 19:57 | RAD ---
Two-view chest dated 01/22/2018. Comparison made to August 14, 2017. Clinical data indication: Chest pain. FINDINGS: PA and lateral views of the chest were obtained. Heart and mediastinal contours are stable. Left-sided. Pacer/AICD, unchanged. Lungs are clear without focal consolidation. Vascular interstitium within normal limits. No pleural effusion or pneumothorax. IMPRESSION: No acute radiographic abnormality. Electronically signed by: Chau Perez MD (01/22/2018 7:54 PM) [facility]
[2018-01-22 20:01] LABS: ALBUMIN/GLOBULIN RATIO 0.6 (1.0-1.7); TOTAL BILIRUBIN 0.7 mg/dL (0.2-1.0); TOTAL PROTEIN 7.7 g/dL (6.4-8.2)
[2018-01-22] MEDS ORDERED: IOHEXOL 300 MG/ML 100ML VIAL. IV ONE (21:30)
[2018-01-22] MEDS ORDERED: CONTRAST GIVEN. MC PRN (21:30)
--- NOTE | 2018-01-22 21:42 | PHYS DOC ---
Past Medical History Past Medical History: Hypertension, Other Additional Past Medical Histor: VFIB ARREST Past Surgical History: Other Additional Past Surgical Histo: RIGHT TORN MENISCUS, DEFIB Alcohol Use: None Drug Use: None Adult General Chief Complaint Chief Complaint: CHEST PAIN HPI HPI Patient is a 32 year old AA female who presents to the ER, via EMS, with complaints of an episode of chest pain that occurred between 1600 and 1700 today while she was at work. Pt states that she has a defibrillator, that was placed here at this hospital, after having a cardiac arrest in June 2017. She states that her defibrillator did not fire. She reports being short of breath with the chest pain and describes the pain as tightness. She denies any recent fever, cough, leg swelling, leg pain, or recent lengthy travel by car or airplane. Patient states that she currently takes metoprolol that was recently increased to 50 mg tablets, a vitamin, aspirin, and Lasix. She states that she has a history of heart failure and an irregular heart rhythm. Patient states that she is currently 27 weeks and is due in April 2018. She reports positive movement and denies any abdominal pain, nausea, vomiting , diarrhea, vaginal bleeding, back pain, irregular vaginal discharge, or contractions. Her INDUSTRIAL MAINTENANCE TECHNICIAN is Dr. Anthony at . She is G2, P1. Review of Systems Review of Systems Constitutional: Denies fever or chills [] HENT: Denies nasal congestion or sore throat [] Respiratory: Denies cough, See HPI Cardiovascular: No additional information not addressed in HPI [] GI: Denies abdominal pain, nausea, vomiting, or diarrhea [] : Denies dysuria or hematuria, see HPI [] Musculoskeletal: Denies back pain or joint pain [] Integument: Denies rash or skin lesions [] Neurologic: Denies headache, focal weakness or sensory changes [] All other systems were reviewed and found to be within normal limits, except as documented in this note. Current Medications Current Medications Current Medications Medications (Trade) Dose Ordered Sig/Hossein Start Time Stop Time Status Last Admin Dose Admin Info (CONTRAST GIVEN -- Rx MONITORING) 1 each PRN DAILY PRN 01/22/18 21:30 01/24/18 21:29 Iohexol (Omnipaque 300 Mg/ml) 75 ml 1X ONCE 01/22/18 21:30 01/22/18 21:31 DC 01/22/18 21:31 75 ML Allergies Allergies Allergies Coded Allergies Type Severity Reaction Last Updated Verified No Known Drug Allergies 04/30/16 No Physical Exam Physical Exam Constitutional: Well developed, well nourished, no acute distress, non-toxic appearance. [] HENT: Normocephalic, atraumatic, bilateral external ears normal, oropharynx moist, no oral exudates, nose normal. [] Eyes: PERRLA, conjunctiva normal, no discharge. [] Neck: Normal range of motion, no tenderness, supple, no stridor. [] Cardiovascular:Heart rate regular rhythm, no murmur [] Lungs & Thorax: Bilateral breath sounds clear to auscultation [] Abdomen: Bowel sounds normal, soft, no tenderness, no masses, no pulsatile masses. [] Skin: Warm, dry, no erythema, no rash. [] Extremities: No tenderness, no cyanosis, no clubbing, ROM intact, 1+ edema bilateral LE Neurologic: Alert and oriented X 3, normal motor function, normal sensory function, no focal deficits noted. [] Psychologic: Affect normal, judgement normal, mood normal. [] Current Patient Data Vital Signs Vital Signs Date Time Temp Pulse Resp B/P (MAP) Pulse Ox O2 Delivery O2 Flow Rate FiO2 01/22/18 22:30 83 14 103/70 (81) 98 Room Air 01/22/18 17:30 98.7 98.7 Lab Values Laboratory Tests Test 01/22/18 18:45 01/22/18 22:00 White Blood Count 6.6 x10^3/uL (4.0-11.0) Red Blood Count 3.55 x10^6/uL (3.50-5.40) Hemoglobin 12.3 g/dL (12.0-15.5) Hematocrit 36.3 % (36.0-47.0) Mean Corpuscular Volume 102 fL (79-100) H Mean Corpuscular Hemoglobin 35 pg (25-35) Mean Corpuscular Hemoglobin Concent 34 g/dL (31-37) Red Cell Distribution Width 13.3 % (11.5-14.5) Platelet Count 166 x10^3/uL (140-400) Neutrophils (%) (Auto) 70 % (31-73) Lymphocytes (%) (Auto) 21 % (24-48) L Monocytes (%) (Auto) 8 % (0-9) Eosinophils (%) (Auto) 1 % (0-3) Basophils (%) (Auto) 0 % (0-3) Neutrophils # (Auto) 4.6 x10^3uL (1.8-7.7) Lymphocytes # (Auto) 1.4 x10^3/uL (1.0-4.8) Monocytes # (Auto) 0.5 x10^3/uL (0.0-1.1) Eosinophils # (Auto) 0.1 x10^3/uL (0.0-0.7) Basophils # (Auto) 0.0 x10^3/uL (0.0-0.2) Prothrombin Time 12.7 SEC (11.7-14.0) Prothrombin Time INR 1.0 (0.8-1.1) D-Dimer (Claudia) 3.19 ug/mlFEU (0.00-0.50) H Sodium Level 139 mmol/L (136-145) Potassium Level 3.5 mmol/L (3.5-5.1) Chloride Level 102 mmol/L (98-107) Carbon Dioxide Level 22 mmol/L (21-32) Anion Gap 15 (6-14) H Blood Urea Nitrogen 13 mg/dL (7-20) Creatinine 0.7 mg/dL (0.6-1.0) Estimated GFR (Cockcroft-Gault) 117.3 BUN/Creatinine Ratio 19 (6-20) Glucose Level 72 mg/dL (70-99) Calcium Level 9.3 mg/dL (8.5-10.1) Magnesium Level 2.0 mg/dL (1.8-2.4) Total Bilirubin 0.7 mg/dL (0.2-1.0) Aspartate Amino Transferase (AST) 51 U/L (15-37) H Alanine Aminotransferase (ALT) 83 U/L (14-59) H Alkaline Phosphatase 40 U/L (46-116) L Troponin I Quantitative < 0.017 ng/mL (0.000-0.055) PX-Cpd-U-Type Natriuretic Peptide 67 pg/mL (0-124) Total Protein 7.7 g/dL (6.4-8.2) Albumin 3.0 g/dL (3.4-5.0) L Albumin/Globulin Ratio 0.6 (1.0-1.7) L POC Troponin I 0.00 ng/ml (<0.08) Laboratory Tests 01/22/18 18:45 Laboratory Tests 01/22/18 18:45 EKG EKG 1735 SR no STEMI read by Dr. Dove[] Radiology/Procedures Radiology/Procedures PROCEDURE: CHEST PA & LATERAL Two-view chest dated 01/22/2018. Comparison made to August 14, 2017. Clinical data indication: Chest pain. FINDINGS: PA and lateral views of the chest were obtained. Heart and mediastinal contours are stable. Left-sided. Pacer/AICD, unchanged. Lungs are clear without focal consolidation. Vascular interstitium within normal limits. No pleural effusion or pneumothorax. IMPRESSION: No acute radiographic abnormality.[] PROCEDURE: CT ANGIOGRAPHY CHEST CT ANGIOGRAPHY CHEST dated 01/22/2018 9:15 PM Indication: Pain.CHEST PAIN; OMNI 300, 75ML elevated d-dimer. 27 weeks . Comparison: No comparison is available. Technique: Contiguous axial imaging of the chest performed following the intravenous administration of 75 cc Omnipaque 300. Study was performed as dedicated PE protocol with thin cut coronal MIPS 3-D reconstruction. One or more of the following individualized dose reduction techniques were utilized for this examination: 1. Automated exposure control 2. Adjustment of the mA and/or kV according to patient size 3. Use of iterative reconstruction technique Findings: Study is limited due to to missed timing of contrast bolus. There is no apparent central or main lobar pulmonary embolus. Segmental and subsegmental branches are not well evaluated based on technique. Heart size within normal limits. No pericardial effusion. No mediastinal, hilar or axillary lymphadenopathy. Central airways are patent. Lungs are clear without focal consolidation. Vascular interstitium within normal limits. No pleural effusion or pneumothorax. Minimal linear opacity at both lung bases, likely scar or atelectasis. Limited images of the upper abdomen unremarkable. No apparent bony abnormality. IMPRESSION: 1. Limited exam due to mistiming of contrast bolus. There is no apparent central or main lobar pulmonary embolus. The segmental and subsegmental branches not well evaluated based on technique. 2. Minimal bibasilar scar or atelectasis. Otherwise clear lungs. Course & Med Decision Making Course & Med Decision Making Pertinent Labs and Imaging studies reviewed. (See chart for details) Pt presents for evaluation of chest pain and shortness of breath, she is 27 weeks and has a hx of GENEVA score 5 moderate risk for PE; D-dimer 3.19, CBC unremarkable, Mg 2.0, AST 51, ALT 83, Troponin <0.017, BNP 67 with initial labs; CXR unremarkable. 1955- Spoke with radiologist Dr. Johnson who states there is not much difference in the amount of radiation between CT chest angio and VQ scan, the CT would be less affected by the pacemaker. 2011- Spoke with Dr. Mejia OB instructional support specialist, about patient and elevated D-dimer, per Dr. Mejia CT chest to rule out PE recommended. 2154- CT Chest Limited exam due to mistiming of contrast bolus. There is no apparent central or main lobar pulmonary embolus. The segmental and subsegmental branches not well evaluated based on technique. 2200- repeat troponin I-stat negative 0.00 2210- ultrasound bilateral LE ordered to r/o dvt's also interrogation of defibrilator ordered. 2310- Report to Dr. Colon, pending U/S of bilateral lower extremities, FHTs, and defibrillator interrogation. Dx: Dragon Disclaimer Dragon Disclaimer This electronic medical record was generated, in whole or in part, using a voice recognition dictation system. Departure Departure Referrals: VINAY FREEDMAN MD (PCP) RAMÓN JAMA APRN Jan 22, 2018 21:42
[2018-01-22 22:30] VITALS: BP 103/70
--- NOTE | 2018-01-22 23:07 | RAD ---
Bilateral lower extremity venous Doppler dated 01/22/2018. No comparison available. Clinical data indication: Chest pain and elevated d-dimer. FINDINGS: Grayscale, color-flow and spectral waveform analysis performed to include the deep venous system of both lower extremity. Normal compressibility, phasicity and augmentation of flow throughout. No filling defects are seen. IMPRESSION: No evidence of lower extremity deep vein thrombosis. Electronically signed by: Chau Perez MD (01/22/2018 11:04 PM) [facility]
[2018-01-23] MEDS ORDERED: IOHEXOL 300 MG/ML 100ML VIAL. ONE (02:13)
== END 2018-01-22 23:40 | disposition home or self-care (01) ==
LOC: ER 17:26
DX: O26.892 Other specified pregnancy related conditions, second trimester (principal); R07.89 Other chest pain; O16.2 Unspecified maternal hypertension, second trimester; Z3A.27 27 weeks gestation of pregnancy
CPT/HCPCS: 36415; 71046; 71275; 80053; 83735; 83880; 84484; 85025; 85379; 85610; 93005; 93970; 99285; Q9967

== ENCOUNTER 2018-06-14 15:49 | Emergency (ER) | payer OTHER ==
[~2018-06-14] VITALS: Ht 162.6 cm; Wt 90.3 kg
[2018-06-14 16:10] VITALS: BP 143/95
[2018-06-14] MEDS ORDERED: SULF1TAB24 PO (16:27)
--- NOTE | 2018-06-14 16:28 | PHYS DOC ---
Past Medical History Past Medical History: Hypertension, Other Additional Past Medical Histor: VFIB ARREST (BRITTNY CLEVELAND JUNIOR STAFF ACCOUNTANT) Past Surgical History: Other Additional Past Surgical Histo: RIGHT TORN MENISCUS, DEFIB (BRITTNY CLEVELAND Genie JUNIOR STAFF ACCOUNTANT) Alcohol Use: None Drug Use: None (BRITTNY CLEVELAND Genie BESS) Adult General Chief Complaint Chief Complaint: SKIN PROBLEM HPI HPI Patient is a 32 year old female who presents with an abscess to her left axilla. The patient has a history of abscesses. She states that this one has been self draining. She denies fever, nausea or vomiting. (BRITTNY CLEVELAND Genie JUNIOR STAFF ACCOUNTANT) Review of Systems Review of Systems Constitutional: Denies fever or chills [] Eyes: Denies change in visual acuity, redness, or eye pain [] HENT: Denies nasal congestion or sore throat [] Respiratory: Denies cough or shortness of breath [] Cardiovascular: No additional information not addressed in HPI [] GI: Denies abdominal pain, nausea, vomiting, bloody stools or diarrhea [] : Denies dysuria or hematuria [] Musculoskeletal: Denies back pain or joint pain [] Integument: See history of present illness Neurologic: Denies headache, focal weakness or sensory changes [] Endocrine: Denies polyuria or polydipsia [] All other systems were reviewed and found to be within normal limits, except as documented in this note. (ADORE CLEVELANDDAVINA Prescott JUNIOR STAFF ACCOUNTANT) Allergies Allergies Allergies Coded Allergies Type Severity Reaction Last Updated Verified No Known Drug Allergies 04/30/16 No (YVONNE FREED MD) Physical Exam Physical Exam Constitutional: Well developed, well nourished, no acute distress, non-toxic appearance. [] Cardiovascular:Heart rate regular rhythm, no murmur [] Lungs & Thorax: Bilateral breath sounds clear to auscultation [] Abdomen: Bowel sounds normal, soft, no tenderness, no masses, no pulsatile masses. [] Skin: 3 cm draining abscess to the left axilla with induration in the tissue surrounding Neurologic: Alert and oriented X 3, normal motor function, normal sensory function, no focal deficits noted. [] Psychologic: Affect normal, judgement normal, mood normal. [] (BRITTNY CLEVELAND APRN) Current Patient Data Vital Signs Vital Signs Date Time Temp Pulse Resp B/P (MAP) Pulse Ox O2 Delivery O2 Flow Rate FiO2 06/14/18 16:10 98.8 99 19 143/95 (111) 100 Room Air 98.8 (YVONNE FREED MD) Lab Values Laboratory Tests Test 06/14/18 16:30 POC Urine HCG, Qualitative Hcg negative (Negative) (YVONNE FREED MD) Lab Values Laboratory Tests Test 06/14/18 16:30 POC Urine HCG, Qualitative Hcg negative (Negative) (BRITTNY CLEVELAND APRN) EKG EKG [] (BRITTNY CLEVELAND APRN) Radiology/Procedures Radiology/Procedures [] (BRITTNY CLEVELAND APRN) Course & Med Decision Making Course & Med Decision Making Pertinent Labs and Imaging studies reviewed. (See chart for details) [] (BRITTNY CLEVELAND APRN) Course & Med Decision Making Staff Physician Addendum: I was working in the ER during the course of this patient's visit. I was available for consultation as needed, but I was not directly involved in the care of this patient. (YVONNE FREED MD) Dragon Disclaimer Dragon Disclaimer This electronic medical record was generated, in whole or in part, using a voice recognition dictation system. (BRITTNY CLEVELAND APRN) Departure Departure Impression: Primary Impression: Abscess Disposition: 01 HOME, SELF-CARE Condition: STABLE Referrals: VINAY FREEDMAN MD (PCP) Patient Instructions: Abscess Additional Instructions: Medication as directed. Use hot compresses multiple times daily. Follow-up with your primary care provider for recheck in 4 days if not improving or return to the emergency department if worsening. Scripts Sulfamethoxazole/Trimethoprim (BACTRIM DS TABLET) 1 Each Tablet 1 TAB PO BID for abscess, #20 TAB Prov: BRITTNY CLEVELAND APRN 06/14/18 BRITTNY CLEVELAND APRN Jun 14, 2018 16:28 YVONNE FREED MD Jun 25, 2018 18:15
== END 2018-06-14 16:34 | disposition home or self-care (01) ==
LOC: ER 15:49
DX: L02.412 Cutaneous abscess of left axilla (principal); I10 Essential (primary) hypertension
CPT/HCPCS: 81025; 99283

== ENCOUNTER 2019-05-15 11:04 | Emergency (ER) | payer BC ==
[~2019-05-15] VITALS: Ht 162.6 cm; Wt 102.0 kg
[~2019-05-15 11:04] MED LIST changes: +SULF1TAB24 PO
[2019-05-15 12:06] LABS: U PREG PATIENT NEGATIVE (NEG)
[2019-05-15 12:08] LABS: AMPHETAMINE/METHAMPHETAMINE NEG (NEG); BARBITURATES NEG (NEG); BENZODIAZEPINES NEG (NEG); CANNABINOIDS NEG (NEG); COCAINE NEG (NEG); METHADONE NEG (NEG); OPIATES NEG (NEG); PHENCYCLIDINE NEG (NEG)
[2019-05-15 12:10] LABS: BASO # 0.1 x10^3/uL (0.0-0.2); BASO % 2 % (0-3); EOS % 1 % (0-3); HEMATOCRIT 37.9 % (36.0-47.0); HEMOGLOBIN 12.7 g/dL (12.0-15.5); LYMPH # 1.4 x10^3/uL (1.0-4.8); LYMPH % 39 % (24-48); MEAN CORPUSCULAR HEMOGLOBIN 32 pg (25-35); MEAN CORPUSCULAR HGB CONC 34 g/dL (31-37); MEAN CORPUSCULAR VOLUME 96 fL (79-100); MONO # 0.3 x10^3/uL (0.0-1.1); MONO % 9 % (0-9); NEUT # 1.8 x10^3/uL (1.8-7.7); NEUT % 49 % (31-73); PLATELET COUNT 209 x10^3/uL (140-400); RED BLOOD COUNT 3.95 x10^6/uL (3.50-5.40); RED CELL DISTRIBUTION WIDTH 13.2 % (11.5-14.5); WHITE BLOOD COUNT 3.6 x10^3/uL (4.0-11.0)
--- NOTE | 2019-05-15 12:12 | PHYS DOC ---
Past Medical History Past Medical History: Hypertension, Other Additional Past Medical Histor: VFIB ARREST Past Surgical History: Other Additional Past Surgical Histo: RIGHT TORN MENISCUS, DEFIB Smoking Status: Never Smoker Alcohol Use: None Drug Use: None Adult General Chief Complaint Chief Complaint: CHEST PAIN [facility] HPI Patient is a 33 year old female with history of hypertension and ventricular fibrillation with cardiac arrest and fibrillator placement 1 year ago who presents with complaint of chest pain. Patient complaining of intermittent epi sodes of left chest pain around defibrillator area for the last 2 weeks that usually happen once or twice a day and last for about 10 minutes as a sharp pain without radiation. Patient complaining of shortness of breath, dizziness, palpitation and nausea without paresthesia and rated her pain 8/10. Patient states she did not take any pain medication for the last 2 weeks for her pain and did not seek medical attention. Patient states she had episode of the same pain previously without abnormal finding. Patient does not want to have pain medication at arrival to ER. Review of Systems Review of Systems Constitutional: Denies fever or chills [] Eyes: Denies change in visual acuity, redness, or eye pain [] HENT: Denies nasal congestion or sore throat [] Respiratory: Denies cough, reports shortness of breath [] Cardiovascular: No additional information not addressed in HPI [] GI: Denies abdominal pain, vomiting, bloody stools or diarrhea, reports nausea [] : Denies dysuria or hematuria [] Musculoskeletal: Denies back pain or joint pain [] Integument: Denies rash or skin lesions [] Neurologic: Denies headache, focal weakness or sensory changes [] Endocrine: Denies polyuria or polydipsia [] All other systems were reviewed and found to be within normal limits, except as documented in this note. Allergies Allergies Allergies Coded Allergies Type Severity Reaction Last Updated Verified No Known Drug Allergies 04/30/16 No Physical Exam Physical Exam Constitutional: Well developed, well nourished, mild distress, non-toxic appearance. [] HENT: Normocephalic, atraumatic, bilateral external ears normal, oropharynx moist, no oral exudates, nose normal. [] Eyes: PERRLA, EOMI, conjunctiva normal, no discharge. [] Neck: Normal range of motion, no tenderness, supple, no stridor. [] Cardiovascular:Heart rate regular rhythm, no murmur [] Lungs & Thorax: Bilateral breath sounds clear to auscultation, defibrillator placed in left upper chest wall without signs of infection or tenderness [] Abdomen: Bowel sounds normal, soft, no tenderness, no masses, no pulsatile masses. [] Skin: Warm, dry, no erythema, no rash. [] Back: No tenderness, no CVA tenderness. [] Extremities: No tenderness, no cyanosis, no clubbing, ROM intact, no edema. [] Neurologic: Alert and oriented X 3, normal motor function, normal sensory function, no focal deficits noted. [] Psychologic: Affect normal, judgement normal, mood normal. [] Current Patient Data Vital Signs Vital Signs Date Time Temp Pulse Resp B/P (MAP) Pulse Ox O2 Delivery O2 Flow Rate FiO2 05/15/19 11:10 98.0 84 18 161/99 (119) 99 Room Air 98.0 Lab Values Laboratory Tests Test 05/15/19 11:39 05/15/19 12:00 Urine Collection Type Unknown Urine Color Yellow Urine Clarity Clear Urine pH 7.5 Urine Specific [place] <=1.005 Urine Protein Negative mg/dL (NEG-TRACE) Urine Glucose (UA) Negative mg/dL (NEG) Urine Ketones (Stick) Negative mg/dL (NEG) Urine Blood Negative (NEG) Urine Nitrite Negative (NEG) Urine Bilirubin Negative (NEG) Urine Urobilinogen Dipstick 0.2 mg/dL (0.2 mg/dL) Urine Leukocyte Esterase Negative (NEG) Urine RBC 0 /HPF (0-2) Urine WBC Occ /HPF (0-4) Urine Squamous Epithelial Cells Occ /LPF Urine Bacteria 0 /HPF (0-FEW) Urine Test Negative (NEG) Urine Opiates Screen Neg (NEG) Urine Methadone Screen Neg (NEG) Urine Barbiturates Neg (NEG) Urine Phencyclidine Screen Neg (NEG) Urine Amphetamine/Methamphetamine Neg (NEG) Urine Benzodiazepines Screen Neg (NEG) Urine Cocaine Screen Neg (NEG) Urine Cannabinoids Screen Neg (NEG) Urine Ethyl Alcohol Neg (NEG) White Blood Count 3.6 x10^3/uL (4.0-11.0) L Red Blood Count 3.95 x10^6/uL (3.50-5.40) Hemoglobin 12.7 g/dL (12.0-15.5) Hematocrit 37.9 % (36.0-47.0) Mean Corpuscular Volume 96 fL (79-100) Mean Corpuscular Hemoglobin 32 pg (25-35) Mean Corpuscular Hemoglobin Concent 34 g/dL (31-37) Red Cell Distribution Width 13.2 % (11.5-14.5) Platelet Count 209 x10^3/uL (140-400) Neutrophils (%) (Auto) 49 % (31-73) Lymphocytes (%) (Auto) 39 % (24-48) Monocytes (%) (Auto) 9 % (0-9) Eosinophils (%) (Auto) 1 % (0-3) Basophils (%) (Auto) 2 % (0-3) Neutrophils # (Auto) 1.8 x10^3/uL (1.8-7.7) Lymphocytes # (Auto) 1.4 x10^3/uL (1.0-4.8) Monocytes # (Auto) 0.3 x10^3/uL (0.0-1.1) Eosinophils # (Auto) 0.0 x10^3/uL (0.0-0.7) Basophils # (Auto) 0.1 x10^3/uL (0.0-0.2) Maternal Serum HCG Beta Subunit < 1 mIU/mL (0-5) Sodium Level 140 mmol/L (136-145) Potassium Level 4.6 mmol/L (3.5-5.1) Chloride Level 105 mmol/L (98-107) Carbon Dioxide Level 29 mmol/L (21-32) Anion Gap 6 (6-14) Blood Urea Nitrogen 10 mg/dL (7-20) Creatinine 0.7 mg/dL (0.6-1.0) Estimated GFR (Cockcroft-Gault) 116.6 BUN/Creatinine Ratio 14 (6-20) Glucose Level 95 mg/dL (70-99) Calcium Level 9.5 mg/dL (8.5-10.1) Total Bilirubin 0.3 mg/dL (0.2-1.0) Aspartate Amino Transferase (AST) 8 U/L (15-37) L Alanine Aminotransferase (ALT) 13 U/L (14-59) L Alkaline Phosphatase 41 U/L (46-116) L Creatine Kinase 58 U/L (26-192) Troponin I Quantitative < 0.017 ng/mL (0.000-0.055) JK-Qfu-V-Type Natriuretic Peptide 144 pg/mL (0-124) H Total Protein 6.8 g/dL (6.4-8.2) Albumin 3.4 g/dL (3.4-5.0) Albumin/Globulin Ratio 1.0 (1.0-1.7) Laboratory Tests 05/15/19 12:00 Laboratory Tests 05/15/19 12:00 EKG EKG EKG interpreted by me. EKG at 1108 showed normal sinus rhythm at rate of 82, leftward axis, normal NC and QT intervals, poor R wave progression anteroseptal leads, no acute ST and T wave elevation. Radiology/Procedures Radiology/Procedures [address] [place], [place] [id number] IMAGING REPORT Signed PATIENT: REMA KHAN ACCOUNT: [id number] : 1985 LOCATION: ER AGE: 33 SEX: F EXAM STATUS: REG ER ORD. PHYSICIAN: MARCOS RICARDO MD REASON: Chest pain PROCEDURE: PORTABLE CHEST 1V PORTABLE CHEST 1V History: Chest pain. Comparison: 11/26/2018. FINDINGS: Cardiomediastinal silhouette is stable, and not enlarged. Pacemaker defibrillator device is again identified. No evidence of pneumothorax. No evidence of pleural effusion. No evidence of consolidating infiltrate. IMPRESSION: No evidence of consolidating infiltrate or significant interval change. Electronically signed by: Chau Moreno MD (05/15/2019 12:21 PM) [id number] DICTATED and SIGNED BY: CHAU MORENO MD DATE: 05/15/19 1221 Course & Med Decision Making Course & Med Decision Making Pertinent Labs and Imaging studies reviewed. (See chart for details) Evaluation of patient nurse a 32-year-old female patient with history of def ibrillator in place and frequent emergency room visit and hospitalization for chest wall pain presented with complaining of episode of chest pain for 2 weeks. Patient had unremarkable physical exam and lab. Patient had few episodes of 2 or 3 PVCs in a row without firing defibrillator. Cardiology team was consulted at 1329 and evaluated the patient in ER. Patient was advised to follow-up with her bakery supervisor. I've spoken with the patient and/or caregivers. I've explained the patient's condition, diagnosis and treatment plan based on information available to me at this time. I've answered the patient's and/or caregivers questions and addressed any concerns. The patient and/or caregivers have a good understanding the patient's diagnosis, condition and treatment plan as can be expected at this point. Vital signs have been stabilized. The patient's condition is stable for discharge from the emergency department. The patient will pursue further outpatient evaluation with her primary care provider or other designated consulting physician as outlined in the discharge instructions. Patient and/or caregivers are agreeable to this plan of care and follow-up instructions have been explained in detail. The patient and/or caregivers have received these instructions in written format and expressed understanding of these discharge instructions. The patient and her caregivers are aware that if any significant change in condition or worsening of symptoms should prompt him to immediately return to this of the closest emergency department. If an emergent department is not readily available I would encourage him to call 911. [place] Disclaimer Dragon Disclaimer This electronic medical record was generated, in whole or in part, using a voice recognition dictation system. Departure Departure Impression: Primary Impression: Musculoskeletal chest pain Additional Impressions: Arrhythmia Cardiac defibrillator in place Disposition: HOME, SELF-CARE (At 1423) Condition: STABLE Referrals: KUNAL TRUJILLO (PCP) Patient Instructions: Cardiac Arrhythmia, Chest Wall Pain Additional Instructions: Follow-up with your bakery supervisor at [facility] in 1 or 2 days Follow-up with your primary care physician in 3-5 days Return to ER if not getting better Thank you for visiting [facility]. We appreciate you trusting us with your care. If any additional problems come up don't hesitate to return to visit us. Please follow up with your primary care provider so they can plan additional care if needed and know about the problem that you had. If symptoms worsen come back to the Emergency Department. Any concerning symptoms that start such as chest pain, shortness of air, weakness or numbness on one side of the body, running high fevers or any other concerning symptoms return to the ER. Problem Qualifiers Additional Impressions: Arrhythmia Arrhythmia type: unspecified cardiac arrhythmia Qualified Codes: I49.9 - Cardiac arrhythmia, unspecified MARCOS RICARDO MD May 15, 2019 12:12
[2019-05-15 12:19] LABS: BILIRUBIN,URINE NEGATIVE (NEG); CLARITY,URINE CLEAR; COLOR,URINE YELLOW; NITRITE,URINE NEGATIVE (NEG); PH,URINE 7.5; PROTEIN,URINE NEGATIVE (NEG-TRACE); UROBILINOGEN,URINE 0.2 mg/dL (0.2 mg/dL)
[2019-05-15 12:24] LABS: BACTERIA,URINE 0 /HPF (0-FEW); RBC,URINE 0 /HPF (0-2); SQUAMOUS EPITHELIAL CELL,UR OCC /LPF; WBC,URINE OCC /HPF (0-4)
--- NOTE | 2019-05-15 12:24 | RAD ---
PORTABLE CHEST 1V History: Chest pain. Comparison: 11/26/2018. FINDINGS: Cardiomediastinal silhouette is stable, and not enlarged. Pacemaker defibrillator device is again identified. No evidence of pneumothorax. No evidence of pleural effusion. No evidence of consolidating infiltrate. IMPRESSION: No evidence of consolidating infiltrate or significant interval change. Electronically signed by: Chau Moreno MD (05/15/2019 12:21 PM) [id number]
[2019-05-15 12:25] LABS: CALCIUM 9.5 mg/dL (8.5-10.1); CREATININE 0.7 mg/dL (0.6-1.0); GFR 116.6; POTASSIUM 4.6 mmol/L (3.5-5.1)
[2019-05-15 12:31] LABS: ALBUMIN 3.4 g/dL (3.4-5.0); TOTAL BILIRUBIN 0.3 mg/dL (0.2-1.0); TOTAL PROTEIN 6.8 g/dL (6.4-8.2)
--- NOTE | 2019-05-15 12:39 | EKG ---
[facility] [address] [place] [address] Test Date: 2019-05-15 Test Time: 11:08:29 Pat Name: REMA KHAN Department: Room: Gender: F Adult Day Care Worker: : 1985 Requested By: MARCOS RICARDO Order Number: [id number] Reading MD: Measurements Intervals [place] Rate: 82 P: 46 MD: 142 QRS: -1 QRSD: 78 T: -5 QT: 362 QTc: 426 Interpretive Statements SINUS RHYTHM LEFTWARD AXIS QRS(T) CONTOUR ABNORMALITY CONSIDER ANTEROLATERAL MYOCARDIAL DAMAGE POSSIBLY ABNORMAL ECG RI6.01 No previous ECG available for comparison
--- NOTE | 2019-05-15 14:01 | PDOC2 ---
CARDIAC CONSULT DATE OF CONSULT Date of Consult DATE: 05/15/19 TIME: 13:58 REASON FOR CONSULT Reason for Consult: Chest wall pain, arrhythmia REFERRING PHYSICIAN Referring Physician: Emily SOURCE Source: Chart review, Patient HISTORY OF PRESENT ILLNESS HISTORY OF PRESENT ILLNESS This is a pleasant 33 yo female admitted for complains of chest pain. Reports that she sees a poly operator in and seen him last yr. Reports no vomiting but has not been sleeping well and feels depressed with no suicidal ideation. Her pain is sharp above her AICD site and this is easily reproducibel with palpation. Denies any VILLAVICENCIO nor exertional CP. 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 Reports tolerance with this job but has feeling exhausted recently since she works almost everyday and has not been sleeping muxh. Feels fatigu bu no changes to her appetite. She is still feeling depressed from her stillborn about a yr and has been seeing a counselor. To add she has not been compliant with her antidepressants. She was noted with stress indueced cardiomyopathy in the past and received an AICD due hx of Vfib. She is not on any cardiac meds and no arrhythmias so far per tele. No passing out or frequent dizziness. PAST MEDICAL HISTORY Past Medical History Cardiovascular: CHF (NICM), HTN, Hyperlipidemia, Other (V-FIB OOH cardiac arr est) Pulmonary: Other (acute respiratory failure requiring indutabtion secondary to cardiac arrest) CENTRAL NERVOUS SYSTEM: Other (anoxic encephalopathy) GI: No pertinent hx Heme/Onc: No pertinent hx Hepatobiliary: No pertinent hx Psych: major depression Rheumatologic: No pertinent hx Infectious disease: No pertinent hx ENT: No pertinent hx Renal/: Other (ATN) Endocrine: No pertinent hx Dermatology: No pertinent hx PAST SURGICAL HISTORY Past Surgical History Pacemaker (AICD), Arthroscopy (right meniscus repair), Other (C) FAMILY HISTORY Family History noncontributory SOCIAL HISTORY Smoke: No ALCOHOL: none Drugs: None Lives: with Family ALLERGIES ALLERGIES: Coded Allergies: No Known Drug Allergies (Unverified , 04/30/16) ROS Review of System 14 point ROS evaluated with pertinent positives noted per HPI PHYSICAL EXAM General: Alert, Oriented X3, Cooperative, No acute distress HEENT: Atraumatic, Mucous membr. moist/pink Lungs: Clear to auscultation, Normal air movement Heart: Regular rate (SR), Normal S1, Normal S2, Other (2/6 systolic murmur to LLS border) Abdomen: Soft, No tenderness, Other (obese) Extremities: No cyanosis, Other (trace LE edema) Skin: No breakdown, No significant lesion Neuro: Sensation intact Psych/Mental Status: Mental status NL, Mood NL MUSCULOSKELETAL: Full range of motion without pain VITALS/I&O VITALS/I&O: Vital Signs Date Time Temp Pulse Resp B/P (MAP) Pulse Ox O2 Delivery O2 Flow Rate FiO2 05/15/19 11:10 98.0 84 18 161/99 (119) 99 Room Air 98.0 LABS Lab: Laboratory Tests Test 05/15/19 11:39 05/15/19 12:00 Urine Collection Type Unknown Urine Color Yellow Urine Clarity Clear Urine pH 7.5 Urine Specific [place] <=1.005 Urine Protein Negative mg/dL (NEG-TRACE) Urine Glucose (UA) Negative mg/dL (NEG) Urine Ketones (Stick) Negative mg/dL (NEG) Urine Blood Negative (NEG) Urine Nitrite Negative (NEG) Urine Bilirubin Negative (NEG) Urine Urobilinogen Dipstick 0.2 mg/dL (0.2 mg/dL) Urine Leukocyte Esterase Negative (NEG) Urine RBC 0 /HPF (0-2) Urine WBC Occ /HPF (0-4) Urine Squamous Epithelial Cells Occ /LPF Urine Bacteria 0 /HPF (0-FEW) Urine Test Negative (NEG) Urine Opiates Screen Neg (NEG) Urine Methadone Screen Neg (NEG) Urine Barbiturates Neg (NEG) Urine Phencyclidine Screen Neg (NEG) Urine Amphetamine/Methamphetamine Neg (NEG) Urine Benzodiazepines Screen Neg (NEG) Urine Cocaine Screen Neg (NEG) Urine Cannabinoids Screen Neg (NEG) Urine Ethyl Alcohol Neg (NEG) White Blood Count 3.6 x10^3/uL (4.0-11.0) L Red Blood Count 3.95 x10^6/uL (3.50-5.40) Hemoglobin 12.7 g/dL (12.0-15.5) Hematocrit 37.9 % (36.0-47.0) Mean Corpuscular Volume 96 fL (79-100) Mean Corpuscular Hemoglobin 32 pg (25-35) Mean Corpuscular Hemoglobin Concent 34 g/dL (31-37) Red Cell Distribution Width 13.2 % (11.5-14.5) Platelet Count 209 x10^3/uL (140-400) Neutrophils (%) (Auto) 49 % (31-73) Lymphocytes (%) (Auto) 39 % (24-48) Monocytes (%) (Auto) 9 % (0-9) Eosinophils (%) (Auto) 1 % (0-3) Basophils (%) (Auto) 2 % (0-3) Neutrophils # (Auto) 1.8 x10^3/uL (1.8-7.7) Lymphocytes # (Auto) 1.4 x10^3/uL (1.0-4.8) Monocytes # (Auto) 0.3 x10^3/uL (0.0-1.1) Eosinophils # (Auto) 0.0 x10^3/uL (0.0-0.7) Basophils # (Auto) 0.1 x10^3/uL (0.0-0.2) Maternal Serum HCG Beta Subunit < 1 mIU/mL (0-5) Sodium Level 140 mmol/L (136-145) Potassium Level 4.6 mmol/L (3.5-5.1) Chloride Level 105 mmol/L (98-107) Carbon Dioxide Level 29 mmol/L (21-32) Anion Gap 6 (6-14) Blood Urea Nitrogen 10 mg/dL (7-20) Creatinine 0.7 mg/dL (0.6-1.0) Estimated GFR (Cockcroft-Gault) 116.6 BUN/Creatinine Ratio 14 (6-20) Glucose Level 95 mg/dL (70-99) Calcium Level 9.5 mg/dL (8.5-10.1) Total Bilirubin 0.3 mg/dL (0.2-1.0) Aspartate Amino Transferase (AST) 8 U/L (15-37) L Alanine Aminotransferase (ALT) 13 U/L (14-59) L Alkaline Phosphatase 41 U/L (46-116) L Creatine Kinase 58 U/L (26-192) Troponin I Quantitative < 0.017 ng/mL (0.000-0.055) QP-Rcd-Z-Type Natriuretic Peptide 144 pg/mL (0-124) H Total Protein 6.8 g/dL (6.4-8.2) Albumin 3.4 g/dL (3.4-5.0) Albumin/Globulin Ratio 1.0 (1.0-1.7) Laboratory Tests 05/15/19 12:00 Laboratory Tests 05/15/19 12:00 ECHOCARDIOGRAM ECHOCARDIOGRAM 1. Left ventricle at upper limit of normal size. Normal wall thickness and mass. Normal wall motion. Borderline low ejection fraction=50%. Normal diastolic function. 2. Normal pulmonary artery pressure. 3. Normal right ventricle size and ejection fraction. 4. Normal central venous pressure. [facility] 07/24/2018 ASSESSMENT/PLAN ASSESSMENT/PLAN 1. Atypical CP: MSK, noncardiac, excellent functional capacity 2. 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 sees counselor but skips antidepressants 3. AICD in situ: Biotronik. from previous hx of takotsubo CM and Vfib arrest 4. Hx of NICM: recovered Recent EF 50% 5. Obesity Recommendations 1. Presently not on any cardiac meds since she got .BP, rhythm stable. Sees [facility]ology. Encouraged to follow up with them 2. Encouraged compliance with antidepressants and continue to see her psychologist/psychiatrist. ESEQUIEL ADAMS APRN May 15, 2019 14:01
[2019-05-15 14:30] VITALS: BP 140/91
== END 2019-05-15 14:34 | disposition home or self-care (01) ==
LOC: ER 11:04
DX: I49.9 Cardiac arrhythmia, unspecified (principal); R07.89 Other chest pain; R06.02 Shortness of breath; R42 Dizziness and giddiness; I10 Essential (primary) hypertension; Z98.890 Other specified postprocedural states; Z95.810 Presence of automatic (implantable) cardiac defibrillator
CPT/HCPCS: 36415; 71045; 80053; 80307; 81001; 81025; 82550; 83880; 84484; 84702; 85025; 93005; 99285

== ENCOUNTER 2019-09-10 19:47 | Emergency (ER) | payer BC ==
[~2019-09-10] VITALS: Ht 162.6 cm; Wt 104.6 kg
[2019-09-10 20:26] VITALS: BP 156/85
[2019-09-10] MEDS ORDERED: CEPH-264 PO (20:54)
[2019-09-10] MEDS ORDERED: HYDR-3164 PO (20:54)
[2019-09-10] MEDS ORDERED: TRIA15CR TP (20:54)
--- NOTE | 2019-09-10 20:54 | PHYS DOC ---
Past Medical History Past Medical History: Hypertension, Other Additional Past Medical Histor: VFIB ARREST Past Surgical History: Other Additional Past Surgical Histo: RIGHT TORN MENISCUS, DEFIB Smoking Status: Never Smoker Alcohol Use: None Drug Use: None General Adult EDM: Chief Complaint: INSECT BITE HPI: HPI: Patient is a 33 year old female who presents with yesterday thinks she was eit her bit or stung by something in the left lateral upper thigh. There is a golf ball sized red circular area with a very small puncture with center. She states it itches very badly. She states it does burn. She rates her pain 6 out of 10 without radiation. She is up-to-date on vaccinations. Patient has a history of V. fib arrest that she has a defibrillator, hypertension. Review of Systems: Review of Systems: Constitutional: Denies fever or chills. [] Eyes: Denies change in visual acuity. [] HENT: Denies nasal congestion or sore throat. [] Respiratory: Denies cough or shortness of breath. [] Cardiovascular: Denies chest pain or edema. [] GI: Denies abdominal pain, nausea, vomiting, bloody stools or diarrhea. [] : Denies dysuria. [] Musculoskeletal: Denies back pain or joint pain. [] Integument: Denies rash. Left lateral upper thigh insect bite with associated cellulitis. [] Neurologic: Denies headache, focal weakness or sensory changes. [] Endocrine: Denies polyuria or polydipsia. [] Lymphatic: Denies swollen glands. [] Psychiatric: Denies depression or anxiety. [] Heart Score: Risk Factors: Risk Factors: DM, Current or recent (<one month) smoker, HTN, HLP, family history of CAD, obesity. Risk Scores: Score 0 - 3: 2.5% MACE over next 6 weeks - Discharge Home Score 4 - 6: 20.3% MACE over next 6 weeks - Admit for Clinical Observation Score 7 - 10: 72.7% MACE over next 6 weeks - Early Invasive Strategies Allergies: Allergies: Allergies Coded Allergies Type Severity Reaction Last Updated Verified No Known Drug Allergies 04/30/16 No Physical Exam: PE: Constitutional: Well developed, well nourished, no acute distress, non-toxic appearance. [] HENT: Normocephalic, atraumatic, bilateral external ears normal, oropharynx moist, no oral exudates, nose normal. [] Eyes: PERRLA, EOMI, conjunctiva normal, no discharge. [] Neck: Normal range of motion, no tenderness, supple, no stridor. [] Cardiovascular:Heart rate regular rhythm, no murmur [] Lungs & Thorax: Bilateral breath sounds clear to auscultation [] Abdomen: Bowel sounds normal, soft, no tenderness, no masses, no pulsatile masses. [] Skin: Warm, dry, no erythema, no rash. Left lateral upper thigh bug bite with associated cellulitis. Golf ball sized. [] Back: No tenderness, no CVA tenderness. [] Extremities: No tenderness, no cyanosis, no clubbing, ROM intact, no edema. [] Neurologic: Alert and oriented X 3, normal motor function, normal sensory function, no focal deficits noted. [] Psychologic: Affect normal, judgement normal, mood normal. [] Current Patient Data: Vital Signs: Vital Signs Date Time Temp Pulse Resp B/P (MAP) Pulse Ox O2 Delivery O2 Flow Rate FiO2 09/10/19 20:26 98.4 71 18 156/85 (108) 96 Room Air 98.4 EKG: EKG: [] Radiology/Procedures: Radiology/Procedures: [] Course & Med Decision Making: Course & Med Decision Making Pertinent Labs and Imaging studies reviewed. (See chart for details) Skin pink warm and dry. See HPI. Nondraining. Afebrile. There is no fluctuant area of which would need to be opened at this time. Patient is educated to use a warm compress. [] Dragon Disclaimer: Dragon Disclaimer: This electronic medical record was generated, in whole or in part, using a voice recognition dictation system. Departure Departure Impression: Primary Impression: Insect bite Qualified Codes: S70.362A - Insect bite (nonvenomous), left thigh, initial encounter; W57.XXXA - Bitten or stung by nonvenomous insect and other nonvenomous arthropods, initial encounter Additional Impression: Cellulitis Qualified Codes: L03.116 - Cellulitis of left lower limb Disposition: 01 HOME, SELF-CARE Condition: STABLE Referrals: KUNAL TRUJILLO (PCP) Patient Instructions: Insect Bite, [id number], Insect Sting Allergy Additional Instructions: Try taking Benadryl for your itching. Take medications for pain as prescribed and with food. Do not drink any alcohol or drive on the pain medicine. Use a warm compress. Scripts Hydrocodone/Apap 5-325 (NORCO 5-325 TABLET) 1 Each Tablet 1 TAB PO PRN Q6HRS PRN for PAIN, #8 TAB 0 Refills Prov: NELY BERGMAN APRN 09/10/19 Triamcinolone Acetonide (TRIAMCINOLONE ACETONIDE 0.5% CREAM) 15 Gm Cream..g. 1 JASPREET TP BID, #15 GM 1 Refill Prov: NELY BERGMAN APRN 09/10/19 Cephalexin (KEFLEX) 500 Mg Capsule 1 CAP PO TID for 10 Days, #30 CAP 0 Refills Prov: NELY BERGMAN APRN 09/10/19 Justicifation of Admission Dx: Justifications for Admission: Justification of Admission Dx: N/A NELY BERGMAN APRN Sep 10, 2019 20:54
== END 2019-09-10 21:58 | disposition home or self-care (01) ==
LOC: ER 19:47
DX: S70.362A Insect bite (nonvenomous), left thigh, initial encounter (principal); L03.116 Cellulitis of left lower limb; I10 Essential (primary) hypertension; W57.XXXA Bitten or stung by nonvenomous insect and other nonvenomous arthropods, initial encounter; Y93.89 Activity, other specified; Y92.89 Other specified places as the place of occurrence of the external cause; Y99.8 Other external cause status
CPT/HCPCS: 81025; 99283